=== PATIENT | female | born 1995 | race African-American/Black ===

== ENCOUNTER 2017-02-14 18:54 | Emergency (ER) | payer OTHER, MEDICAID ==
[~2017-02-14] VITALS: Ht 160 cm; Wt 86.2 kg
[2017-02-14 18:54] VITALS: BP 115/67
[2017-02-14] MEDS ORDERED: NS 1,000 ML IV ONE (20:45)
--- NOTE | 2017-02-14 23:00 | REPUSA ---
CLINICAL HISTORY: HEMATURIA/DYSURIA TECHNIQUE: Multiple axial, sagittal and coronal CT images were obtained through the abdomen and pelvi s without administration of oral or IV contrast material. COMMENTS: The liver is of uniform attenuation without mass or defect. There is no intra or extrahepatic biliary ductal dilatation. The spleen is normal. The gallbladder is within normal limits. The pancreas is of normal contour and attenuation characteristics. There is no evidence of adrenal mass. The kidneys are normal in size, shape and configuration. No renal or ureteral calculi are identified. There is no hydroureter or hydronephrosis. Small fat-containing umbilical hernia is seen. There is no evidence for appendicitis. There is no bowel wall thickening. No evidence for small or la rge bowel obstruction. There is no evidence of abdominal ascites or lymphadenopathy. There is no evidence of intrinsic or extrinsic bladder mass. There is no pelvic ascites or lymphadeno cody. The uterus and ovaries are unremarkable. Images of the lung bases show no evidence of pleural or parenchymal mass. There are no pleural effusi ons. The bony structures are free of lytic or blastic lesions. IMPRESSION: No acute abdominal pelvic pathology. No renal or ureteral calculi. Thank you for your kind referral of this patient.
[2017-02-14] MEDS ORDERED: CIPR-249 PO (23:44)
== END 2017-02-14 23:50 | disposition home or self-care (01) ==
LOC: M ED 18:54
DX: N30.01 Acute cystitis with hematuria (principal); Z88.3 Allergy status to other anti-infective agents